=== PATIENT | female | born 1990 | race Caucasian/White ===

== ENCOUNTER 2021-07-21 09:26 | Emergency (ER) | payer OTHER ==
[2021-07-21] MEDS ORDERED: Ketorolac 30 MG/ML SDV IM ONE (09:43)
[2021-07-21] MEDS ORDERED: Promethazine 25 MG/ML SDV IM ONE (09:43)
--- NOTE | 2021-07-21 09:50 | EDM.PDOC ---
ED HPI GENERAL MEDICAL PROBLEM - General Chief Complaint: Headache Stated Complaint: HEADACHE,FEVER,EMESIS Time Seen by Provider: 07/21/21 09:35 Source of Information: Reports: Patient, Family History Limitations: Reports: No Limitations - History of Present Illness INITIAL COMMENTS - FREE TEXT/NARRATIVE: 31-year-old white female who presents here to the ER with a ongoing dull throbbing pressure type headache that she rates a 10 out of 10 and points to the front area of her forehead that started apparently last night about 9 or 10 PM along with some nausea and vomiting x4 through the night. Patient states she tried taking Tylenol and ibuprofen with no relief. Patient also states she did run fever up to 100 last night. Patient admits to the last several days she has not felt well and had a cough through the last week. 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 In regards to her headache she states she has occasional headache 3-4 times a month that is usually alleviated by NSAIDs but this 1 has not. She does rate this 1 is the worst of her life. She has no history of any type of medical issues she has never seen neurology nor she has ever had a CT scan or MRI. She has no family history of aneurysms subarachnoid hemorrhage lesions or masses that she knows. Patient states though at this time she does not want to be fully worked up for the headache she is okay with checking for Covid and flu and strep try to treat the headache with Toradol and Phenergan and seeing what happens. 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 Frontal Headache Pain Score (Numeric/FACES): 8 - Related Data Allergies Allergy/AdvReac Type Severity Reaction Status Date / Time No Known Allergies Allergy Verified 07/21/21 09:37 Home Meds: Home Meds DULoxetine [Cymbalta] 30 mg PO DAILY 07/21/21 [History] busPIRone [Buspar] 10 mg PO BID 07/21/21 [History] Past Medical History Psychiatric History: Reports: Anxiety, Depression Social & Family History - Tobacco Use Tobacco Use Status *Q: Never Tobacco User - Recreational Drug Use Recreational Drug Use: No ED ROS GENERAL - Review of Systems Review Of Systems: See Below Constitutional: Reports: Fever HEENT: Reports: No Symptoms Respiratory: Reports: Cough Cardiovascular: Reports: No Symptoms Endocrine: Reports: No Symptoms GI/Abdominal: Reports: Nausea, Vomiting. Denies: Abdominal Pain : Reports: No Symptoms Musculoskeletal: Reports: No Symptoms. Denies: Neck Pain, Muscle Pain, Muscle Stiffness Skin: Reports: No Symptoms Neurological: Reports: Headache. Denies: Confusion, Dizziness, Numbness, Seizure, Syncope, Tingling, Trouble Speaking, Weakness, Change in Speech Psychiatric: Reports: No Symptoms Hematologic/Lymphatic: Reports: No Symptoms Immunologic: Reports: No Symptoms - Physical Exam Exam: See Below Exam Limited By: No Limitations General Appearance: Alert, WD/WN, No Apparent Distress, Other (All vital signs are noted patient is laying on the bed no acute distress noted talking with her normal conversation logical thought process) Eye Exam: Bilateral Eye: EOMI, Normal Inspection, PERRL Ears: Normal External Exam, Normal Canal, Hearing Grossly Normal, Normal TMs Nose: Normal Inspection, Normal Mucosa, No Blood Throat/Mouth: Normal Inspection, Normal Lips, Normal Teeth, Normal Gums, Normal Oropharynx, Normal Voice, No Airway Compromise, Other (There is some mild posterior oropharynx erythema no exudate in line uvula no edema) Head Exam: Atraumatic, Normocephalic, Other (No tenderness to palpation over the sinus cavities) Neck: Normal Inspection, Supple, Non-Tender, Full Range of Motion. No: Lymphadenopathy (L), Lymphadenopathy (R), Tender Midline Respiratory/Chest: No Respiratory Distress, Lungs Clear, Normal Breath Sounds, No Accessory Muscle Use, Chest Non-Tender Cardiovascular: Normal Peripheral Pulses, Regular Rate, Rhythm, No Edema, No Gallop, No JVD, No Murmur, No Rub GI/Abdominal: Normal Bowel Sounds, Soft, Non-Tender, No Organomegaly, No Distention, No Abnormal Bruit Neuro Exam (Abbreviated): Alert, Oriented, CN II-XII Intact, Normal Cognition, Normal Gait, Normal Reflexes, No Motor/Sensory Deficits Back Exam: Normal Inspection, Full Range of Motion. No: CVA Tenderness (L), CVA Tenderness (R) Extremities: Normal Inspection, Normal Range of Motion, Non-Tender, No Pedal Edema, Normal Capillary Refill Psychiatric: Normal Affect, Normal Mood Skin Exam: Warm, Dry, Intact, Normal Color, No Rash Course - Vital Signs Text/Narrative:: We will check rapid Covid flu and strep secondary to signs symptoms none where the patient works We will treat with Toradol 30 mg IM and Phenergan 12.5 mg IM If no changes with patient's condition will provide for further work-up but at this time patient does not wish to receive any radiation nor any further work-up Rapid Covid flu strep all negative Patient was rechecked states nausea is better but the headache is not changed Patient was rechecked after Tylenol and ibuprofen she states the headache is gone down a little bit maybe about a 7 out of 10 but she wants to go home she states that this time she has no nausea and is okay with disposition and treatment and going home Last Recorded V/S: Last Vital Signs Temp 36.3 C 07/21/21 09:26 Pulse 73 07/21/21 09:26 Resp 16 07/21/21 09:26 BP 120/67 07/21/21 09:26 Pulse Ox 99 07/21/21 09:26 - Orders/Labs/Meds Orders: Active Orders 24 hr Category Date Time Status Ibuprofen [Motrin] Med 07/21/21 10:59 Ordered 600 mg PO Q6H PRN Medication Orders Ibuprofen (Ibuprofen 200 Mg Tab) 600 mg PO Q6H PRN PRN Reason: Pain/Fever Last Admin: 07/21/21 11:10 Dose: 600 mg Documented by: Labs: Laboratory Tests 07/21/21 Range/Units 09:51 Influenza Type A RNA Negative (NEGATIVE) Influenza Type B RNA Negative (NEGATIVE) SARS-CoV-2 RNA (LINDA) Negative (NEGATIVE) Group A Strep (PCR) Not detected (NOT DETECT) Meds: Medications Generic Name Dose Route Start Last Admin Trade Name Freq PRN Reason Stop Dose Admin Ibuprofen 600 mg 07/21/21 10:59 07/21/21 11:10 Ibuprofen 200 Mg Tab PO 600 mg Q6H PRN Administration Pain/Fever Discontinued Medications Generic Name Dose Route Start Last Admin Trade Name Freq PRN Reason Stop Dose Admin Acetaminophen 650 mg 07/21/21 10:59 07/21/21 11:10 Acetaminophen 325 Mg Tab PO 07/21/21 11:00 650 mg NOW ONE Administration Ketorolac Tromethamine 30 mg 07/21/21 09:43 07/21/21 09:52 Ketorolac 30 Mg/Ml Sdv IM 07/21/21 09:44 30 mg ONETIME ONE Administration Promethazine HCl 12.5 mg 07/21/21 09:43 07/21/21 09:54 Promethazine 25 Mg/Ml Sdv IM 07/21/21 09:44 12.5 mg ONETIME ONE Administration Departure - Departure Time of Disposition: 12:00 Disposition: Home, Self-Care 01 Condition: Good Clinical Impression: Headache, Nausea and vomiting - Discharge Information *PRESCRIPTION DRUG MONITORING PROGRAM REVIEWED*: No *COPY OF PRESCRIPTION DRUG MONITORING REPORT IN PATIENT SAMANTHA: No Instructions: General Headache Without Cause, [id number] Referrals: Elvis Jimenez [Primary Care Provider] - Forms: ED Department Discharge Additional Instructions: Follow-up with your primary care provider in the next 24 to 48 hours I recommend that she take Tylenol 325mg 1 to 2 tablets every 4-6 hours for the next 24 hours also recommended she take ibuprofen 400 to 600 mg every 6-8 hours for the next 24 hours make sure you drink plenty of fluids You may take the Phenergan 25 mg 1 every 4-6 hours as needed for the next 24 to 48 hours you may also take the Zofran 4 mg every 1 4 to 6 hours as needed for the next 24 to 48 hours If anything changes or gets worse return here to the emergency room Sepsis Event Note (ED) - Focused Exam Vital Signs: Vital Signs Temp Pulse Resp BP Pulse Ox 07/21/21 09:26 36.3 C 73 16 120/67 99 - Problem List & Annotations (1) Headache SNOMED Code(s): 23754545 Code(s): R51.9 - HEADACHE, UNSPECIFIED Status: Acute Current Visit: Yes (2) Nausea and vomiting SNOMED Code(s): 11377419 Code(s): R11.2 - NAUSEA WITH VOMITING, UNSPECIFIED Status: Acute Current Visit: Yes - My Orders Last 24 Hours: My Active Orders 07/21/21 10:59 Ibuprofen [Motrin] 600 mg PO Q6H PRN - Assessment/Plan Last 24 Hours: My Active Orders 07/21/21 10:59 Ibuprofen [Motrin] 600 mg PO Q6H PRN
[2021-07-21 10:45] LABS: CORONAVIRUS COVID-19 NAA NEGATIVE (NEGATIVE); STREP A BY PCR NOT DETECTED (NOT DETECT)
[2021-07-21] MEDS ORDERED: Ibuprofen 200 MG Tab PO PRN (10:59)
[2021-07-21] MEDS ORDERED: Acetaminophen 325 MG Tab PO ONE (10:59)
== END 2021-07-21 12:06 | disposition home or self-care (01) ==
LOC: VM.ED 09:26
DX: R51.9 Headache, unspecified (principal); R11.2 Nausea with vomiting, unspecified; Z20.822 Contact with and (suspected) exposure to COVID-19
CPT/HCPCS: 0240U; 87651; 96372; 96374; 99284; A9270; J1885; J2550

== ENCOUNTER 2022-05-09 22:51 | Emergency (ER) | payer OTHER ==
[2022-05-09] MEDS ORDERED: Sodium Chloride 0.9% 10 ML Syringe FLUSH PRN (23:08)
[2022-05-09] MEDS ORDERED: Ketorolac 15 MG/ML SDV IVPUSH ONE (23:25)
[2022-05-09 23:50] LABS: CHLORIDE,CL 102 mmol/L (98-107); SODIUM,NA 137 mmol/L (136-145)
[2022-05-09 23:53] LABS: ANION GAP 12.7 mmol/L (5-15); ESTIMATED GFR 78 mL/min (>=60)
[2022-05-10 00:14] LABS: CORONAVIRUS COVID-19 NAA NEGATIVE (NEGATIVE); RESPIRATORY SYNCYTIAL VIR NAA NEGATIVE (NEGATIVE)
[2022-05-10] MEDS ORDERED: methylPREDNISolone Sodium Succinate 125 MG/2 ML SDV IV ONE (01:39)
[2022-05-10] MEDS ORDERED: Take Home: predniSONE 20 MG, 2 Tab Pack PO ONE (01:40)
== END 2022-05-10 01:53 | disposition home or self-care (01) ==
LOC: VM.ED 22:51
DX: R07.89 Other chest pain (principal); Z79.899 Other long term (current) drug therapy; Z20.822 Contact with and (suspected) exposure to COVID-19
CPT/HCPCS: 0241U; 71046; 80053; 83735; 83880; 84100; 84443; 84484; 85025; 85379; 86140; 93005; 96374; 96375; 99285; J1885; J2930; J7512